=== PATIENT | male | born 1985 | race Caucasian/White ===

== ENCOUNTER 2016-12-21 00:33 | Inpatient (IN) | payer OTHER ==
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
--- NOTE | ~2016-12-21 | DS ---
Unit #: [id number] #: [id number] Patient: OSCAR FONTAINE [id number] [place] [address] [id number] MR#: [id number] NAME: OSCAR FONTAINE ROOM: [facility] Age: 31 Sex: M Admission Date: 12/21/2016 : 1985 Discharge Date: 12/23/2016 Attending Physician: Manoj Nogueira M.D. Primary Care Physician: Primary Care Physician No DISCHARGE SUMMARY REASON FOR ADMISSION The patient is a 31-year-old, , white male, admitted to the [address] [place] [address] unit related to abuse of alcohol, methamphetamine, and heroin. HOSPITAL COURSE The patient was admitted to the [address] [place] [address] and placed on routine detoxification protocol for both opioids and alcohol. He did exhibit a bit of confusion on the evening of 12/22/2016. On 12/23/2016, however, the patient was fully oriented and attributed his confusion to medications he had been given for withdrawal and anxiety. He was fully oriented, pleasant, and future oriented, stating a plan to go to a treatment facility in [place], [place] upon discharge. As per his request, discharge was ordered. FINAL DIAGNOSES Alcohol use disorder, opioid use disorder, methamphetamine use disorder, hypertension, gastroesophageal reflux disease. DISPOSITION ON DISCHARGE The patient is discharged on the following medications; metoprolol 50 mg b.i.d. for hypertension, Protonix 40 mg daily for GERD, gabapentin 800 mg q.i.d. for anxiety and pain, Elavil 100 mg at h.s. p.r.n. insomnia. DISCHARGE INSTRUCTIONS No dietary or physical restrictions were placed on the patient at the time of discharge. FOLLOWUP Followup will take place through the auspices of community mental health resources in the [place], [place] area. PROGNOSIS The patient's prognosis is considered fair. Dictated by... Manoj Nogueira M.D. CB/santiago TD: 12/23/2016 22:34 JOB #: [id number] Unit #: [id number] #: [id number] Patient: OSCAR FONTAINE DISCHARGE SUMMARY X Manoj Nogueira MD X DISCHARGE SUMMARY
--- NOTE | ~2016-12-21 | PN ---
Unit #: [id number] #: [id number] Patient: OSCAR FONTAINE [id number] [facility] [address] [place] [address] [id number] I MR#: [id number] NAME: OSCAR FONTAINE ROOM: [facility] Age: 31 Sex: M Admission Date: 12/21/2016 : 1985 Attending Physician: Manoj Nogueira M.D. Admitting Physician: Manoj Nogueira M.D. Primary Care Physician: Primary Care Physician Michelle KURTZ PROGRESS NOTES DATE 12/22/2016 DISCUSSION The patient continues to have significant substance withdrawal having required a dose of Ativan just this morning. He is sleeping soundly at this point and multiple attempts to arouse him are not successful. Dictated by... Manoj Nogueira M.D. CB/justin TD: 12/22/2016 14:58 JOB #: [id number] [facility] PROGRESS NOTES X Manoj Nogueira MD X PROGRESS NOTE
--- NOTE | ~2016-12-21 | HP ---
Unit #: [id number] #: [id number] Patient: ERICH FONTAINE [id number] [place] [address] [id number] I MR#: [id number] NAME: ERICH FONTAINE ROOM: P214 Age: 31 Sex: M Admission Date: 12/21/2016 : 1985 Attending Physician: Manoj Nogueira M.D. Admitting Physician: Manoj Nogueira M.D. Primary Care Physician: Primary Care Physician No HISTORY AND PHYSICAL HISTORY OF PRESENT ILLNESS Erich is a 31 year old admitted to [address] [place] [address] because of his continued polysubstance abuse which now includes spice and cocaine. PAST MEDICAL HISTORY 1. Long history of poly-illicit substance abuse to include cocaine and spice and IV heroin. 2. Hepatitis C. 3. High blood pressure. PAST SURGICAL HISTORY Colon resection. ALLERGIES Penicillin, Rocephin, latex. SOCIAL HISTORY Smokes 1 pack per day. Drinks a half gallon of scotch frequently and admits to frequent use of cocaine. FAMILY HISTORY Medically noncontributory. REVIEW OF SYSTEMS CONSTITUTIONAL: No fever or chills. HEENT: Denies any sore throat, ear pain or runny nose. CARDIOVASCULAR: Denies chest pain, irregular heart rhythm or palpitations. CHEST: Denies shortness of breath or cough. No hemoptysis. GASTROINTESTINAL: Denies nausea, vomiting, diarrhea or chronic constipation. ENDOCRINE: Denies history of increased thirst or urination. No recent significant weight loss or gain. GENITOURINARY: Denies dysuria, frequency, or hematuria. SKIN: Denies any rashes. HEMATOLOGIC: Denies history of increased bleeding or bruising. MUSCULOSKELETAL: Denies any hot, swollen joints. No generalized muscle pain. NEUROLOGIC: Denies problems with vision or speech. No frequent, severe headaches. No numbness, tingling or weakness in any extremities. Denies loss of bladder or bowel control. CURRENT MEDICATIONS 1. Detox protocol. Unit #: [id number] #: [id number] Patient: ERICH FONTAINE 2. Amitriptyline 100 mg q.h.s. 3. Thorazine 100 mg q. 6 hours p.r.n. 4. Protonix 40 mg daily. 5. Lopressor 50 mg b.i.d. 6. Nicotine patch 14 mg daily. PHYSICAL EXAMINATION GENERAL: Alert, well-nourished, in no apparent distress. VITAL SIGNS: Blood pressure 110/72, heart rate 80, respirations 16, temperature 98.6. WEIGHT: 215. HEIGHT: 6 feet 5 inches. SKIN: Warm and dry without rash or lesion. HEENT: Normocephalic. TMs not viewed. Oral and nasal passages clear. Conjunctivae clear. PERRLA. EOMs intact. NECK: Supple without lymphadenopathy or thyromegaly. HEART: Regular rate and rhythm without murmur. LUNGS: Clear. ABDOMEN: Soft, nontender. : Not done. EXTREMITIES: No evidence of cyanosis, clubbing or edema. Moves all without focal deficit. NEUROLOGICAL: Grossly within normal limits. Cranial Nerves: II: Visual haley are intact. III, IV AND : Extraocular movements are intact. Pupils are equal, round and reactive to light. V: Facial sensation is grossly normal. VII: Facial movements and expression are normal. VIII: Auditory acuity grossly intact. IX, X: Uvula is midline. Phonation is normal. XI: Patient shrugs shoulders and turns head normally. XII: Tongue protrudes in the midline. Sensory and Motor Function: Sensory and motor sensation is grossly normal. Motor: moves all extremities well. Coordination: Gait is normal. Deep Tendon Reflexes: Intact. IMPRESSION Psychiatric admission. RECOMMENDATIONS PSYCHIATRIC: Per psychiatrist. MEDICAL: See no contraindications to participate in facility's activities. MEDICAL PROGNOSIS Good. MEDICAL CONDITION Stable. Dictated by... Magy Gómez P.A.-C. for Cesar Pleitez/justin TD: 12/21/2016 21:22 Unit #: [id number] #: [id number] Patient: ERICH FONTAINE JOB #: [id number] HISTORY AND PHYSICAL X Magy Gómez HISTORY AND PHYSICAL
[2016-12-21 09:51] LABS: THYROID STIMULATING HORMONE 0.45 uIU/ml (0.34-5.60)
[2016-12-21 09:58] LABS: FREE THYROXIN (T4) 0.8 ng/dL (0.58-1.64)
== END 2016-12-23 14:50 | disposition home or self-care (01) | DRG 897 ==
LOC: P2S 00:33
PROVIDERS: Psychiatry & Neurology Psychiatry
PROC: HZ2ZZZZ Detoxification Services for Substance Abuse Treatment (ICD-10-PCS; principal; 2016-12-21)
DX: F11.20 Opioid dependence, uncomplicated (principal); F14.20 Cocaine dependence, uncomplicated; I10 Essential (primary) hypertension; F15.20 Other stimulant dependence, uncomplicated; F10.20 Alcohol dependence, uncomplicated; B19.20 Unspecified viral hepatitis C without hepatic coma; Z88.0 Allergy status to penicillin; Z88.1 Allergy status to other antibiotic agents; Z91.040 Latex allergy status; F17.200 Nicotine dependence, unspecified, uncomplicated; Z56.0 Unemployment, unspecified; F34.1 Dysthymic disorder
CPT/HCPCS: 84439; 84443

== ENCOUNTER 2016-12-24 04:32 | Inpatient (IN) | payer OTHER ==
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
--- NOTE | ~2016-12-24 | DS ---
Unit #: [id number] #: [id number] Patient: OSCAR FONTAINE [id number] [facility] [address] [place] [address] [id number] MR#: [id number] NAME: OSCAR FONTAINE ROOM: [facility] Age: 31 Sex: M Admission Date: 12/24/2016 : 1985 Discharge Date: 12/25/2016 Attending Physician: Manoj Nogueira M.D. Primary Care Physician: Generic Doctor Not In System DISCHARGE SUMMARY ANTICIPATED DATE OF DISCHARGE 12/25/2016. REASON FOR ADMISSION The patient is a 31-year-old white male, readmitted to the [address] [place] [address] unit after he had overdosed on heroin after leaving the hospital yesterday. HOSPITAL COURSE The patient was admitted to the [address] [place] [address] unit and placed on suicide precautions. He expressed contrition over the ensuing hospitalization admitting that he had the drugs spirited in his possessions at the time of his discharge. Arrangements had been made for the patient to go to a residential chemical dependency treatment facility in [place], [place] the following day. Discharge was ordered to take place on 12/25/2016. FINAL DIAGNOSES Opioid use disorder, alcohol use disorder, methamphetamine use disorder, cocaine use disorder. DISPOSITION ON DISCHARGE At the time of discharge, this physician will provide no prescriptions for psychotropic medication. FOLLOWUP Followup will take place through the auspices of a residential chemical dependency treatment in the [place], [place] area. PROGNOSIS The patient's prognosis is considered fair. Dictated by... Manoj Nogueira M.D. CB/santiago TD: 12/25/2016 01:46 JOB #: [id number] Unit #: [id number] #: [id number] Patient: OSCAR FONTAINE DISCHARGE SUMMARY X Manoj Nogueira MD X DISCHARGE SUMMARY
--- NOTE | ~2016-12-24 | HP ---
Unit #: [id number] #: [id number] Patient: ERICH FONTAINE [id number] [facility] [address] [place] [address] [id number] I MR#: [id number] NAME: ERICH FONTAINE ROOM: P214 Age: 31 Sex: M Admission Date: 12/24/2016 : 1985 Attending Physician: Manoj Nogueira M.D. Admitting Physician: Manoj Nogueira M.D. Primary Care Physician: Generic Doctor Not In System HISTORY AND PHYSICAL HISTORY OF PRESENT ILLNESS Erich Is a 31 year old admitted to [address] [place] [address] because of his continued drug use. He was just discharged from this facility after treatment for the same. The patient was seen and H and P dated 12/21/2016 was reviewed. This is current. No changes. Please see H and P dated 12/21/2016. Dictated by... Magy Gómez P.A.-C. for Cesar Pleitez/mariah TD: 12/25/2016 03:35 JOB #: [id number] HISTORY AND PHYSICAL X Magy Gómez HISTORY AND PHYSICAL
== END 2016-12-25 09:48 | disposition home or self-care (01) | DRG 897 ==
LOC: P1E 04:32 → P2S 04:36 → POF 14:06 → P2S 14:11
DX: F11.20 Opioid dependence, uncomplicated (principal); R45.851 Suicidal ideations; F14.20 Cocaine dependence, uncomplicated; F15.20 Other stimulant dependence, uncomplicated; F10.20 Alcohol dependence, uncomplicated; Z88.0 Allergy status to penicillin; Z88.1 Allergy status to other antibiotic agents; Z91.040 Latex allergy status
CPT/HCPCS: 86592

== ENCOUNTER 2017-02-02 09:21 | Inpatient (IN) | payer OTHER ==
--- NOTE | ~2017-02-02 | PN ---
Unit #: [id number] #: [id number] Patient: OSCAR RODRIGUEZ [id number] [facility] [address] [place] [address] [id number] I MR#: [id number] NAME: OSCAR RODRIGUEZ ROOM: P171 Age: 31 Sex: M Admission Date: 02/02/2017 : 1985 Attending Physician: Carlin Quinn M.D. Admitting Physician: Carlin Quinn M.D. Primary Care Physician: Generic Doctor Not In System [facility] PROGRESS NOTES DATE OF SERVICE: 02/05/2017 SUBJECTIVE Mr. Rodriguez is a 31-year-old white male, who was seen today and chart was reviewed, and case was discussed with the staff. He has been anxious, withdrawn, and rather seclusive to himself. Meanwhile, he has been cooperative with treatment recommendation and he has been taking medications and tolerating them fairly well. MENTAL STATUS EXAMINATION Young white male, who was casually dressed with fair personal hygiene, appears to be in no acute distress or discomfort. He was awake and alert on interaction with intact orientation. His mood was anxious with a congruent affect. He denies any suicidal or homicidal ideations, and also denies any auditory or visual hallucinations. His insight and judgment remain slightly impaired. TREATMENT PLAN 1. We will continue on his current medications and treatment protocol. We will monitor his response to medications and make further adjustments as needed. 2. We will continue to follow up. Dictated by... Cesar No/santiago TD: 02/05/2017 08:22 JOB #: [id number] [facility] PROGRESS NOTES Page 1 of 1 X Carlin Quinn MD PROGRESS NOTE
--- NOTE | ~2017-02-02 | DS ---
Unit #: [id number] #: [id number] Patient: [facility]IGUEZ [id number] [facility] [address] [place] [address] [id number] I MR#: [id number] NAME: OSCAR RODRIGUEZ ROOM: 71 Age: 31 Sex: M Admission Date: 02/02/2017 : 1985 Discharge Date: Attending Physician: Carlin Quinn M.D. Primary Care Physician: Generic Doctor Not In System DISCHARGE SUMMARY IDENTIFYING DATA Mr. Rodriguez is a 31-year-old white male, who is a resident of [place], [place], and was transferred to us from [facility] in [place], [place]. DISCHARGE DIAGNOSES Psychiatric: Bipolar disorder, most recent episode depressed, recurrent, moderate, without psychotic features; alcohol dependence, moderate and acute withdrawals; cocaine dependence, moderate. Medical: Hepatitis C. Stressors: Moderate psychosocial stressors. HISTORY OF PRESENT ILLNESS Please see initial psychiatric evaluation for details. PAST PSYCHIATRIC HISTORY Please see initial psychiatric evaluation for details. PAST MEDICAL HISTORY Please see initial psychiatric evaluation for details. HOSPITAL COURSE The patient was admitted to the adult chemical dependency and psychiatric unit at [facility] and was oriented to the hospital environment. Routine p.r.n. medications were initiated, and he was started back on his home medications. Upon presentation, he was seen to be taking quite a bit of psychotropic medications which were maintained as he stated that he has not been doing good without having medications; however, he was then noticed to be just sleeping and eating and not really participating much in treatment related activities and then was wanting to be on more medications which were uncomfortable to even justify those and as such, at least regular medications were maintained and he was closely monitored. He was taking the medications regularly and was tolerating them fairly well and was able to show a decent and therapeutic response with improvement in depression and anxiety and was denying any suicidal or homicidal ideations, and was not seen to be a danger to self or anyone else and as such, it was decided that he will be discharged home and will continue treatment on an outpatient basis. DISCHARGE MEDICATIONS Seroquel 50 mg t.i.d. for bipolar, Protonix 40 mg b.i.d. for acid reflux, Trileptal 300 mg b.i.d. for bipolar, Seroquel 300 mg at bedtime for bipolar, Lopressor 50 mg b.i.d. for hypertension, Neurontin 800 mg t.i.d. for neuropathy, Elavil 50 mg at bedtime for sleep, Cozaar 50 mg a day for Unit #: [id number] #: [id number] Patient: OSCAR RODRIGUEZ hypertension, Oretic 12.5 mg a day for hypertension, Thorazine 50 mg every 6 hours as needed for anxiety. DISCHARGE CONDITION Stable. PROGNOSIS Fair. Dictated by... Cesar No/santiago TD: 02/08/2017 06:51 JOB #: [id number] DISCHARGE SUMMARY Page 1 of 1 X Carlin Quinn MD X DISCHARGE SUMMARY
--- NOTE | ~2017-02-02 | PN ---
Unit #: [id number] #: [id number] Patient: OSCAR RODRIGUEZ [id number] [facility] [address] [place] [address] [id number] MR#: [id number] NAME: OSCAR RODRIGUEZ ROOM: [facility] Age: 31 Sex: M Admission Date: 02/02/2017 : 1985 Attending Physician: Carlin Quinn M.D. Admitting Physician: Carlin Quinn M.D. Primary Care Physician: Generic Doctor Not In System [facility] PROGRESS NOTES DATE 02/03/2017 DISCUSSION Mr. Rodriguez is a 31-year-old, white male with substance abuse and mood disorder who was seen today and chart was reviewed and case was discussed with the staff. He has been anxious, withdrawn and rather seclusive to himself. Meanwhile, he has been cooperative with the treatment recommendations. He has been taking the medication and tolerating them fairly well with no reported side effects. MENTAL STATUS EXAM Young white male who was casually dressed with fair personal hygiene, appears to be in no acute distress or discomfort. He was awake and alert on interaction with intact orientation. His mood was anxious with congruent affect. His speech was slow and goal directed. He denies any suicidal or homicidal ideation. His insight and judgement remains slightly impaired. TREATMENT PLAN We will continue him on his current treatment protocol. We will monitor his response and make further adjustments as needed. Dictated by... Cesar No/mariah TD: 02/04/2017 04:19 JOB #: [id number] Unit #: [id number] #: [id number] Patient: OSCAR RODRIGUEZ PROGRESS NOTES Page 1 of 1 X Carlin Quinn MD PROGRESS NOTE
--- NOTE | ~2017-02-02 | PN ---
Unit #: [id number] #: [id number] Patient: OSCAR RODRIGUEZ [id number] [facility] [address] [place] [address] [id number] MR#: [id number] NAME: OSCAR RODRIGUEZ ROOM: 71 Age: 31 Sex: M Admission Date: 02/02/2017 : 1985 Attending Physician: Carlin Quinn M.D. Admitting Physician: Cesar No PROGRESS NOTES DATE OF SERVICE: 02/04/2017 SUBJECTIVE Mr. Rodriguez is a 31-year-old white male with substance abuse and mood disorder, who was seen today and chart was reviewed, and case was discussed with the staff. He has been anxious, withdrawn, and rather seclusive to himself. Meanwhile, he has been cooperative with treatment recommendations and has been taking medications, though appears to be unkempt, disheveled, in some distress and discomfort and does not appear to be doing much better, as he has not been able to function and do activities of daily living or have reasonable conversation. MENTAL STATUS EXAMINATION Young white male, who was casually dressed with marginal personal hygiene, appears to be in some distress and discomfort. He was awake and alert with impaired attention and concentration. His mood was anxious with a congruent affect. His speech was slow and restricted in content. His thought processes were disorganized with some looseness of associations. His insight and judgment remain significantly impaired. TREATMENT PLAN 1. We will continue on his current medications and treatment protocol. We will monitor his response to medications and make further adjustments as needed. 2. We will continue to follow up. Dictated by... Cesar No/santiago TD: 02/04/2017 07:59 JOB #: [id number] Unit #: [id number] #: [id number] Patient: OSCAR RODRIGUEZ PROGRESS NOTES Page 1 of 1 X Carlin Quinn MD PROGRESS NOTE
--- NOTE | ~2017-02-02 | DS ---
Unit #: [id number] #: [id number] Patient: OSCAR RODRIGUEZ [id number] [facility] [address] [place] [address] [id number] MR#: [id number] NAME: OSCAR RODRIGUEZ ROOM: P171 Age: 31 Sex: M Admission Date: 02/02/2017 : 1985 Discharge Date: 02/09/2017 Attending Physician: Carlin Quinn M.D. Primary Care Physician: Generic Doctor Not In System DISCHARGE SUMMARY ADDENDUM Mr. Rodriguez was scheduled to be discharged on 02/08/2017. On that morning, he got down in the morning and told that he was not suicidal, but once he was told that he was being discharged, he although suddenly stated that he is suicidal now and was noticed to be not doing much about treatment, just sleeping and eating and wanting more and more medication, and therefore it was decided that detox medications would be stopped and he would be locked out of his room and put on a suicidal watch as he was mentioning that he was suicidal and the very next morning when I saw him, he stated that he is just fine and he never said that he was suicidal and was exhibiting very manipulative behavior and was wanting to go home and was denying being a danger to self or anyone else and as such, it was decided that he will be discharged home and will continue treatment on an outpatient basis. DISCHARGE CONDITION Stable. PROGNOSIS Fair. Dictated by... Cesar No/santiago TD: 02/09/2017 12:06 JOB #: [id number] DISCHARGE SUMMARY Page 1 of 1 X Carlin Quinn MD X DISCHARGE SUMMARY
--- NOTE | ~2017-02-02 | PN ---
Unit #: [id number] #: [id number] Patient: OSCAR RODRIGUEZ [id number] [facility] [address] [place] [address] [id number] I MR#: [id number] NAME: OSCAR RODRIGUEZ ROOM: 71 Age: 31 Sex: M Admission Date: 02/02/2017 : 1985 Attending Physician: Carlin Quinn M.D. Admitting Physician: Carlin Quinn M.D. Primary Care Physician: Generic Doctor Not In System [facility] PROGRESS NOTES DATE OF SERVICE: 02/07/2017 SUBJECTIVE Mr. Rodriguez is a 31-year-old white male who was seen today and chart was reviewed, and case was discussed with the staff. He has been anxious, withdrawn, and rather seclusive to himself. Meanwhile, he has been cooperative with treatment recommendations and has been taking the medications and tolerating them fairly well with no reported side effects. MENTAL STATUS EXAMINATION Young white male who was casually dressed with a fair personal hygiene and appears to be in no acute distress or discomfort. He was awake and alert on interaction with intact orientation. His mood was anxious with a congruent affect. He denies any suicidal or homicidal ideations. His insight and judgment remain slightly impaired. TREATMENT PLAN 1. We will continue him on his current medications and treatment protocol. We will monitor his response to the medication and make further adjustments as needed. 2. We will continue to follow up. Dictated by... Cesar No/santiago TD: 02/07/2017 07:58 JOB #: [id number] [facility] PROGRESS NOTES Page 1 of 1 X Carlin Quinn MD PROGRESS NOTE
--- NOTE | ~2017-02-02 | HP ---
Unit #: [id number] #: [id number] Patient: OSCAR FONTAINE [id number] [place] [address] [id number] I MR#: [id number] NAME: OSCAR FONTAINE ROOM: 71 Age: 31 Sex: M Admission Date: 02/02/2017 : 1985 Attending Physician: Carlin Quinn M.D. Admitting Physician: Carlin Quinn M.D. Primary Care Physician: Generic Doctor Not In System HISTORY AND PHYSICAL HISTORY OF PRESENT ILLNESS The patient is a 31-year-old male admitted to [facility] on 02/02/2017, for alcohol and cocaine abuse. PAST MEDICAL HISTORY 1. Hepatitis B 2. Hypertension 3. GERD PAST SURGICAL HISTORY Colon resection SOCIAL HISTORY He is unemployed and homeless. He drinks 2 fifths of alcohol per day and uses 2 grams of cocaine daily. FAMILY MEDICAL HISTORY Noncontributory. ALLERGIES Penicillin, Rocephin and latex CURRENT MEDICATIONS 1. Seroquel 2. Protonix 3. Trileptal 4. Metoprolol 5. Gabapentin 6. Vistaril 7. Chlorpromazine 8. Losartan with HCTZ 9. Elavil REVIEW OF SYSTEMS CONSTITUTIONAL: No fever or chills. HEENT: Denies any sore throat, ear pain or runny nose. CARDIOVASCULAR: Denies chest pain, irregular heart rhythm or palpitations. CHEST: Denies shortness of breath or cough. No hemoptysis. GASTROINTESTINAL: Denies nausea, vomiting, diarrhea or chronic constipation. ENDOCRINE: Denies history of increased thirst or urination. No recent significant weight loss or gain. GENITOURINARY: Denies dysuria, frequency, or hematuria. Unit #: [id number] #: [id number] Patient: OSCAR FONTAINE SKIN: Denies any rashes. HEMATOLOGIC: Denies history of increased bleeding or bruising. MUSCULOSKELETAL: Denies any hot, swollen joints. No generalized muscle pain. NEUROLOGIC: Denies problems with vision or speech. No frequent, severe headaches. No numbness, tingling or weakness in any extremities. Denies loss of bladder or bowel control. PHYSICAL EXAMINATION GENERAL: He is awake, alert, and oriented in no acute distress. VITAL SIGNS: Temperature 97.1, heart rate 102, respirations 20, blood pressure 127/75 HEIGHT: 6 feet 5 inches WEIGHT: 220 pounds SKIN: Warm and dry without rash or lesion. HEENT: Normocephalic. TMs not viewed. Oral and nasal passages clear. Conjunctivae clear. PERRLA. EOMs intact. NECK: Supple without lymphadenopathy or thyromegaly. HEART: Regular rate and rhythm without murmur. LUNGS: Clear. ABDOMEN: Soft, nontender. : Not done. EXTREMITIES: No evidence of cyanosis, clubbing or edema. Moves all without focal deficit. NEUROLOGICAL: Grossly within normal limits. Cranial Nerves: II: Visual haley are intact. III, IV AND : Extraocular movements are intact. Pupils are equal, round and reactive to light. V: Facial sensation is grossly normal. VII: Facial movements and expression are normal. VIII: Auditory acuity grossly intact. IX, X: Uvula is midline. Phonation is normal. XI: Patient shrugs shoulders and turns head normally. XII: Tongue protrudes in the midline. Sensory and Motor Function: Sensory and motor sensation is grossly normal. Motor: moves all extremities well. IMPRESSION 1. Psychiatric admission. 2. Polysubstance use. 3. Hepatitis C 4. Hypertension. 5. Gastroesophageal reflux disease. RECOMMENDATIONS 1. Psychiatric, per psychiatrist. 2. Medical, no contraindications to participating in facility activities. MEDICAL PROGNOSIS Fair MEDICAL CONDITION Stable Dictated by... Unit #: [id number] #: [id number] Patient: ZHENOSCAR Emiliana Tam A.P.R.N. EF/to TD: 02/03/2017 15:52 JOB #: [id number] HISTORY AND PHYSICAL Page 1 of 1 X EMILIANA TAM APRN X HISTORY AND PHYSICAL
--- NOTE | ~2017-02-02 | PN ---
Unit #: [id number] #: [id number] Patient: OSCAR RODRIGUEZ [id number] [facility] [address] [place] [address] [id number] I MR#: [id number] NAME: OSCAR RODRIGUEZ ROOM: 71 Age: 31 Sex: M Admission Date: 02/02/2017 : 1985 Attending Physician: Carlin Quinn M.D. Admitting Physician: Carlin Quinn M.D. Primary Care Physician: Generic Doctor Not In System [facility] PROGRESS NOTES DATE OF SERVICE: 02/06/2017 SUBJECTIVE Mr. Rodriguez is a 31-year-old white male, who was seen today and chart was reviewed, and case was discussed with the staff. He has been anxious, withdrawn, though has not shown any agitation, irritability, or behavioral problems, and has been cooperative with treatment recommendation and has been taking medications and tolerating them fairly well with no reported side effects. MENTAL STATUS EXAMINATION Young white male, who was casually dressed with fair personal hygiene, appears to be in no acute distress or discomfort. He was awake and alert on interaction with intact orientation. His mood was anxious with a congruent affect. His speech was slow and goal directed. He denies any suicidal or homicidal ideations and also denies any auditory or visual hallucinations. His insight and judgment remain slightly impaired. TREATMENT PLAN 1. We will continue on his current medications and treatment protocol. We will monitor his response to medications and make further adjustments as needed. 2. We will continue to follow up. Dictated by... Cesar No/santiago TD: 02/06/2017 07:41 JOB #: [id number] Unit #: [id number] #: [id number] Patient: OSCAR RODRIGUEZ PROGRESS NOTES Page 1 of 1 X Carlin Quinn MD PROGRESS NOTE
--- NOTE | ~2017-02-02 | PA ---
Unit #: [id number] #: [id number] Patient: OSCAR RODRIGUEZ [id number] [facility] [address] [place] [address] [id number] I MR#: [id number] NAME: OSCAR RODRIGUEZ ROOM: P171 Age: 31 Sex: M Admission Date: 02/02/2017 : 1985 Date of Assessment: 02/02/2017 Attending Physician: Carlin Quinn M.D. Admitting Physician: Carlin Quinn M.D. Primary Care Physician: Generic Doctor Not In System PSYCHIATRIC ASSESSMENT DATE OF SERVICE 02/02/2017. IDENTIFYING DATA Mr. Rodriguez is a 31-year-old white male who is a resident of [place], [place] and was transferred to from [place], [place]. CHIEF COMPLAINT "I'm using alcohol and cocaine daily." HISTORY OF PRESENT ILLNESS Mr. Rodriguez is a 31-year-old white male who took himself to [facility] stating that he has been using alcohol and cocaine daily and has been drinking two-fifth of alcohol and has been using 2 g of more of cocaine and reports feeling that he would be better off and currently wanted to by overdosing on cocaine, and was seen to be agitated, irritable, anxious, restless, withdrawn and reports 2 months ago, he was loading a gun to shoot himself and his brother came in and stopped him. The patient reports currently having suicidal ideation, and reports feeling like he would be better off and that he has a plan to overdose on cocaine and was seen to be danger to self and others and as such, recommendation for inpatient level of care for safety and stabilization was made and the patient was transferred to us. SUBSTANCE ABUSE HISTORY The patient reports history of alcohol and cocaine abuse and dependence, and reports that he has been drinking two-fifth of alcohol on daily basis and has been using 2 g of cocaine on daily basis and as such, has been decompensating. PAST PSYCHIATRIC HISTORY The patient has had history of inpatient psychiatric hospitalization at [facility] and review of the medical records indicate that he has been diagnosed and treated for bipolar disorder. He is currently on combination of psychotropic medication as he is on Trileptal, Seroquel, Thorazine, and Vistaril. PAST MEDICAL HISTORY The patient's medical history is significant for hepatitis C. ALLERGIES Rocephin. Unit #: [id number] #: [id number] Patient: OSCAR RODRIGUEZ PERSONAL AND SOCIAL HISTORY A 31-year-old white male who reports that he is single, unemployed, and essentially homeless and has poor social support system. MENTAL STATUS EXAMINATION Young white male who was casually dressed with fair personal hygiene, appears to be in no acute distress or discomfort. He was awake and alert on interaction with intact orientation to time, place, and person. His mood was anxious and depressed with a congruent affect. His speech was slow and restricted in content. His thought processes were disorganized with some looseness of associations and flight of ideas, and suicidal ideations. His insight and judgment remain significantly impaired. DIAGNOSTIC IMPRESSION Psychiatric: Bipolar disorder, most recent episode depressed, recurrent, moderate, without psychotic features; alcohol dependence, moderate and acute withdrawals; cocaine dependence, moderate. Medical: Hepatitis C. Stressors: Moderate psychosocial stressors. TREATMENT PLAN 1. The patient has presented with history of substance abuse and mood disorder, and has been decompensating and will need inpatient hospitalization for safety and stabilization and detoxification. We will start him on detox protocol. We will closely monitor for any worsening withdrawal symptoms. 2. Supportive therapy was provided to the patient. 3. Safe, structured, and nourishing environment will be reported. ESTIMATED LENGTH OF STAY 5 to 7 days. ABILITY TO HELP SELF Limited. WILLINGNESS TO HELP SELF The patient appears to be willing to help self. STRENGTHS 1. Communicative. 2. Cooperative. PROBLEMS 1. Chronic dysphoric symptoms. 2. Poor social support system. DISCHARGE CRITERIA This will be contingent upon the patient's ability to go through detox without having any significant withdrawal symptoms as well as his ability to stay safe to himself, particularly after discharge from the hospital. Dictated by... Cesar No/santiago Unit #: [id number] #: [id number] Patient: OSCAR RODRIGUEZ TD: 02/03/2017 13:54 JOB #: [id number] PSYCHIATRIC ASSESSMENT Page 1 of 1 X Carlin Quinn MD X PSYCHIATRIC ASSESSMENT
[2017-02-05 18:52] LABS: BASOPHIL# 0.1 X10e3 (0-0.3); BASOPHIL% 0.6 % (0-2.5); EOSINOPHIL# 0.2 X10e3 (0-0.7); EOSINOPHIL% 3.1 % (0.0-7.0); HEMATOCRIT 43.4 % (38.0-50.0); HEMOGLOBIN 14.4 gm/dL (13.0-16.0); LYMPHOCYTE# 3.4 X10e3 (1.0-3.5); LYMPHOCYTE% 42.1 % (17.0-45.0); MEAN CELL VOLUME 94.8 FL (83-96); MEAN CORPUSCULAR HEMOGLOBIN 31.4 PG (28-34); MEAN CORPUSCULAR HGB CONC 33.1 g/dL (30-36); MEAN PLATELET VOLUME 7.5 FL (6.5-11.5); MONOCYTE# 0.8 X10e3 (0-1.0); MONOCYTE% 9.8 % (3.0-12.0); NEUTROPHIL# 3.6 X10e3 (1.5-7.1); NEUTROPHIL% 44.4 % (40-75); PLATELET COUNT 297 X10e3 (140-420); RED BLOOD COUNT 4.57 X10e (3.90-5.60); RED CELL DISTRIBUTION WIDTH 12.8 % (11.0-15.5); WHITE BLOOD COUNT 8.1 X10e3 (4.0-10.5)
[2017-02-05 19:07] LABS: DIFF IND NO
== END 2017-02-09 10:59 | disposition home or self-care (01) | DRG 885 ==
LOC: P1E 09:21
PROVIDERS: Physician Assistant Medical
PROC: HZ2ZZZZ Detoxification Services for Substance Abuse Treatment (ICD-10-PCS; principal; 2017-02-02)
DX: F31.32 Bipolar disorder, current episode depressed, moderate (principal); F14.20 Cocaine dependence, uncomplicated; R45.851 Suicidal ideations; F10.239 Alcohol dependence with withdrawal, unspecified; Z88.1 Allergy status to other antibiotic agents
CPT/HCPCS: 85025

== ENCOUNTER 2017-02-05 20:21 | Emergency (ER) | payer OTHER ==
--- NOTE | ~2017-02-05 | CT2 ---
[facility] A Service of [facility] RADIOLOGY TEXT RESULTS PATIENT: OSCAR FONTAINE LOCATION: [facility] : [birth year] UNIT #: [id number] AGE: [address]: Yoshi Keith MD SEX: M ORDER DR: [id number] [facility] [address] [place], [place] [address] [id number] MR#: [id number] Acc #: [id number] NAME: OSCAR FONTAINE : 1985 SEX: M STUDY DATE/TIME: 02/05/2017 22:04 UNIT: YELENA ROOM: STUDY DESCRIPTION: CT Abd and Pelv W Cont Attending Physician: Yoshi Keith M.D. Ordering Physician: Yoshi Keith M.D. Primary Care Physician: Generic Doctor Not In System MEDICAL IMAGING REPORT This report is preliminary unless electronic signature is present EXAM CT abdomen and pelvis. HISTORY Abdominal pain for 1 week. Right lower quadrant. Hypertension. TECHNIQUE This CT exam was performed with one or more of the following radiation dose reduction techniques: automatic exposure control, adjustment of mA and/or kV according to patient size, and iterative reconstruction. CT abdomen and pelvis performed with intravenous administration 100 mL Isovue-370. Enteric contrast not administered. COMPARISON STUDIES No comparisons. FINDINGS Lung bases clear. Inferior heart and pericardium unremarkable. Liver, gallbladder, spleen, pancreas, adrenal glands, kidneys normal in appearance. Ureters unremarkable. No secondary signs of recent stone passage. Urinary bladder unremarkable. CT Pelvis: No inguinal adenopathy. No pelvic or retroperitoneal adenopathy. Distal esophagus unremarkable. Moderate residual food debris in the stomach. Correlate with ingestion history. The small bowel shows no acute abnormality. The appendix is normal. Colon shows moderate stool burden. No dilatation or inflammatory change. No indication of mass lesion. Vascular structures normal. Bony structures show no acute abnormality. IMPRESSION [facility] A Service of [facility] RADIOLOGY TEXT RESULTS PATIENT: OSCAR FONTAINE LOCATION: [facility] : [birth year] UNIT #: [id number] AGE: [address]: Yoshi Keith MD SEX: M ORDER DR: 1. There is no clearly acute abnormality seen within the abdomen or pelvis. The gallbladder, pancreas, kidneys and appendix are normal in appearance. 2. Moderate residual food debris in the stomach likely reflecting patient's ingestion history. Correlate clinically. 3. Moderate stool burden in otherwise unremarkable colon. Probably physiologic in nature. Correlate with any clinical indications of constipation. 4. Remainder study unremarkable. See details above. Dictated by... Kirt Colmenares M.D. THIS IS AN ELECTRONICALLY VERIFIED REPORT Kirt Colmenares M.D. at 02/06/2017 10:44 PM Ines TD: 02/05/2017 23:35 JOB #: [id number] MEDICAL IMAGING REPORT Page 1 of 1 COPY
[2017-02-05 20:36] LABS: BASOPHIL% 0.6 % (0-2.5); EOSINOPHIL# 0.2 X10e3 (0-0.7); EOSINOPHIL% 2.7 % (0.0-7.0); HEMATOCRIT 43.5 % (38.0-50.0); HEMOGLOBIN 14.8 gm/dL (13.0-16.0); LYMPHOCYTE# 3.2 X10e3 (1.0-3.5); LYMPHOCYTE% 41.7 % (17.0-45.0); MEAN CELL VOLUME 92.9 FL (83-96); MEAN CORPUSCULAR HEMOGLOBIN 31.6 PG (28-34); MEAN PLATELET VOLUME 7.2 FL (6.5-11.5); MONOCYTE# 0.7 X10e3 (0-1.0); MONOCYTE% 9.1 % (3.0-12.0); NEUTROPHIL# 3.5 X10e3 (1.5-7.1); NEUTROPHIL% 45.9 % (40-75); PLATELET COUNT 301 X10e3 (140-420); RED BLOOD COUNT 4.68 X10e (3.90-5.60); WHITE BLOOD COUNT 7.6 X10e3 (4.0-10.5)
[2017-02-05 20:39] LABS: DIFF IND NO
[2017-02-05 21:06] LABS: ALBUMIN SERUM 4.1 g/dL (3.5-5.0); ALKALINE PHOSPHATASE 77 U/L (32-92); ALT (SGPT) 227 U/L (10-40); AMYLASE 33 U/L (0-46); AST (SGOT) 92 U/L (10-42); BILIRUBIN,TOTAL 0.4 mg/dL (0.2-2.0); BLOOD UREA NITROGEN 17 mg/dL (9-23); CALCIUM SERUM 9.4 mg/dL (8.4-10.2); CARBON DIOXIDE 27 mmol/L (22-31); CHLORIDE 100 mmol/L (100-111); GLOM FILT RATE Estimated 101.3 mL/min (>60); GLUCOSE FASTING 108 mg/dL (70-110); LIPASE 24 U/L (22-51); POTASSIUM 3.8 mmol/L (3.5-5.1); SODIUM 135 mmol/L (135-145)
[2017-02-05 21:07] LABS: BILIRUBIN, DIRECT <0.1 mg/dL (0.0-0.2); BILIRUBIN,INDIRECT 0.3 mg/dL (0.0-0.9)
== END 2017-02-06 01:34 ==
LOC: CED 20:21
PROVIDERS: Emergency Medicine
DX: R10.31 Right lower quadrant pain (principal); I10 Essential (primary) hypertension; F32.9 Major depressive disorder, single episode, unspecified; F17.200 Nicotine dependence, unspecified, uncomplicated; Z88.8 Allergy status to other drugs, medicaments and biological substances
CPT/HCPCS: 36415; 74177; 80048; 80076; 82150; 83690; 85025; 96361; 96374; 96375; 96376; 99284; J1170; J2405; Q9967

== ENCOUNTER 2017-02-11 10:45 | Inpatient (IN) | payer OTHER ==
--- NOTE | ~2017-02-11 | DS ---
Unit #: [id number] #: [id number] Patient: OSCAR FONTAINE [id number] [facility] [address] [place] [address] [id number] I MR#: [id number] NAME: OSCAR FONTAINE ROOM: [facility] Age: 31 Sex: M Admission Date: 02/11/2017 : 1985 Discharge Date: 02/14/2017 Attending Physician: Manoj Nogueira M.D. Primary Care Physician: Generic Doctor Not In System DISCHARGE SUMMARY REASON FOR ADMISSION The patient is a 31-year-old white male, admitted in transfer from [facility] following voicing suicidal ideation. HOSPITAL COURSE The patient was admitted to the [address] [place] [address] and placed on suicide precautions. He was placed on room lockout given his threats of suicide at the time of admission; however, by 02/11, the patient was responding to hospitalization and denied suicidal ideation, and room lockout precautions were discontinued. He exhibited little in the way of signs or symptoms of withdraw and reported reduction in suicidal thinking and by 02/14 discharge was ordered. DISCHARGE DIAGNOSES [place] I Cocaine use disorder. Opioid use disorder. Antisocial personality disorder. [place] II [place] III Gastroesophageal reflux disease. Hypertension. [place] IV [place] V DISPOSITION ON DISCHARGE The patient is discharged on the following medications: 1. Seroquel 50 mg three times daily for anxiety 2. Protonix 40 mg twice daily for gastroesophageal reflux disease 3. Trileptal 300 mg twice daily for mood stabilization 4. Seroquel 300 mg at bedtime for mood stabilization 5. Lopressor 50 mg twice daily for hypertension 6. Elavil 50 mg at bedtime for insomnia 7. Cozaar 50 mg once daily for hypertension 8. Oretic 12.5 mg once daily for hypertension 9. Neurontin 800 mg three times daily for chronic pain This physician will provide no prescriptions for the patient as he just left the hospital on 02/09/2017. The patient will follow through the auspices of community mental health resources. PROGNOSIS Unit #: [id number] #: [id number] Patient: OSCAR FONTAINE His prognosis is considered fair. Dictated by... Manoj Nogueira M.D. CB/cleo TD: 02/13/2017 13:17 JOB #: [id number] DISCHARGE SUMMARY Page 1 of 1 X Manoj Nogueira MD DISCHARGE SUMMARY
--- NOTE | ~2017-02-11 | PN ---
Unit #: [id number] #: [id number] Patient: OSCAR FONTAINE [id number] [facility] [address] [place] [address] [id number] I MR#: [id number] NAME: OSCAR FONTAINE ROOM: P210 Age: 31 Sex: M Admission Date: 02/11/2017 : 1985 Attending Physician: Manoj Nogueira M.D. Admitting Physician: Manoj Nogueira M.D. Primary Care Physician: Generic Doctor Not In System [facility] PROGRESS NOTES DATE 02/12/2017 DISCUSSION The patient states that he is working towards gaining admission to a 12 month recovery program. He is active within the therapeutic milieu. I will discontinue eye view precautions and will restart the patient's Neurontin. Dictated by... Manoj Nogueira M.D. CB/justin TD: 02/12/2017 15:10 JOB #: [id number] [facility] PROGRESS NOTES Page 1 of 1 X Manoj Nogueira MD X PROGRESS NOTE
--- NOTE | ~2017-02-11 | PA ---
Unit #: [id number] #: [id number] Patient: OSCAR FONTAINE [id number] [facility] [address] [place] [address] [id number] I MR#: [id number] NAME: OSCAR FONTAINE ROOM: P210 Age: 31 Sex: M Admission Date: 02/11/2017 : 1985 Date of Assessment: 02/11/2017 Attending Physician: Manoj Nogueira M.D. Admitting Physician: Manoj Nogueira M.D. Primary Care Physician: Generic Doctor Not In System PSYCHIATRIC ASSESSMENT IDENTIFYING INFORMATION The patient is a 31-year-old white male admitted in transfer from [facility] where he had presented voicing suicidal ideation. INFORMANT(S) Information is mainly obtained from the chart as the patient is sleeping soundly during attempted interview. CHIEF COMPLAINT None given. HISTORY OF PRESENT ILLNESS The patient is a 31-year-old white male just discharged from this facility yesterday on 02/09/2017. According to report the patient overdosed on cocaine while at the bus station in [place] then presented to [facility] reporting positive suicidal ideation with plan to overdose on cocaine or heroin. When seen today the patient is abed. During his last hospitalization Dr. Quinn notes that the patient's participation within the therapeutic milieu was quite poor and that the patient did exhibit what appeared to be manipulative suicidal ideation in hopes of continuing his stay in the hospital. For more complete history of present illness please refer to previous dictated notes. PAST PSYCHIATRIC HISTORY Reviewed no changes. PAST MEDICAL HISTORY Reviewed no changes. MEDICATIONS 1. Seroquel 2. Protonix 3. Trileptal 4. Lopressor 5. Neurontin 6. Elavil 7. Cozaar 8. Oretic FAMILY HISTORY Reviewed no changes SOCIAL HISTORY Unit #: [id number] #: [id number] Patient: OSCAR FONTAINE Reviewed no changes MENTAL STATUS EXAMINATION At this time reveals the patient to be soundly sleeping white male appearing stated age. He is in no apparent physical distress at the time of the examination. Further testing is not possible secondary to the patient not arousing despite multiple attempts by this physician to arouse him. ASSETS AND LIABILITIES ASSETS: To be assessed. LIABILITIES: Homelessness, lack of resources, possible malingering. DIAGNOSTIC IMPRESSION 1. Cocaine use disorder 2. Opioid use disorder 3. Antisocial personality disorder 4. GERD 5. Hypertension PSYCHIATRIC PLAN/TREATMENT GOALS The patient remains hospitalized for safety and stabilization. A routine detoxification protocol for opioids has been initiated. I will discontinue previously prescribed Neurontin and given the patient's brief period outside the hospital will also discontinue his CIWA protocol. IV precautions will be ordered given the patient's treats at the time of admission in hopes of encouraging the patient's participation within the therapeutic milieu. ESTIMATED LENGTH OF STAY IN THE HOSPITAL Three to four days. Dictated by... Manoj Nogueira M.D. JORGE/mariah TD: 02/11/2017 23:49 JOB #: [id number] PSYCHIATRIC ASSESSMENT Page 1 of 1 X Manoj Nogueira MD X PSYCHIATRIC ASSESSMENT
--- NOTE | ~2017-02-11 | HP ---
Unit #: [id number] #: [id number] Patient: ERICH FONTAINE [id number] [facility] [address] [place] [address] [id number] I MR#: [id number] NAME: ERICH FONTAINE ROOM: P210 Age: 31 Sex: M Admission Date: 02/11/2017 : 1985 Attending Physician: Manoj Nogueira M.D. Admitting Physician: Manoj Nogueira M.D. Primary Care Physician: Generic Doctor Not In System HISTORY AND PHYSICAL HISTORY OF PRESENT ILLNESS Erich is a 31 year old admitted to [address] [place] [address] because of his continued drug use. He was released from this facility on 02/09 and before he got out of [place] he was snorting cocaine [place] bus station. He is readmitted back because of his continued drug use. The patient was seen and history and physical dated 12/21/2016 was reviewed. This is current. Please see history and physical dated 12/21/2016 for complete history and physical exam. He also has a physical exam on 02/03/2017. During his admission of 02/03/2017 he complained of right lower quadrant pain. On examination he had minimal guarding with positive/negative rebound. He was sent out to [facility] Emergency Room and CAT scan showed no acute abnormality within the abdomen or pelvis. Dictated by... Magy Gómez P.A.-C. for Cesar Pleitez/mariah TD: 02/12/2017 02:36 JOB #: [id number] HISTORY AND PHYSICAL Page 1 of 1 X Magy Gómez HISTORY AND PHYSICAL
[2017-02-13 09:35] LABS: URINE APPEARANCE CLEAR; URINE BILIRUBIN NEG (NEG); URINE BLOOD NEG (NEG); URINE COLOR YELLOW; URINE GLUCOSE NEG (NEG); URINE KETONE NEG (NEG); URINE LEUKOCYTE ESTERASE NEG (NEG); URINE NITRATE NEG (NEG); URINE PROTEIN NEG (NEG); URINE SPECIFIC GRAVITY 1.005 (1.003-1.035); URINE UROBILINOGEN 0.2 MG/DL (NEG)
[2017-02-13 09:54] LABS: AMPHETAMINE POS (NEG); BARBITURATES NEG (NEG); BENZODIAZEPINES NEG (NEG); COCAINE POS (NEG); MARIJUANA NEG (NEG); OPIATES NEG (NEG); TRICYCLIC ANTIDEPRESSANTS POS (NEG); U METHADONE NEG (NEG)
== END 2017-02-13 17:25 | disposition home or self-care (01) | DRG 897 ==
LOC: P2S 10:45
PROVIDERS: Specialist
PROC: HZ2ZZZZ Detoxification Services for Substance Abuse Treatment (ICD-10-PCS; principal; 2017-02-11)
DX: F14.20 Cocaine dependence, uncomplicated (principal); F11.20 Opioid dependence, uncomplicated; R45.851 Suicidal ideations; F60.2 Antisocial personality disorder; K21.9 Gastro-esophageal reflux disease without esophagitis; I10 Essential (primary) hypertension; F41.9 Anxiety disorder, unspecified; G89.29 Other chronic pain
CPT/HCPCS: 80307; 81003; 86592

== ENCOUNTER 2017-02-15 13:30 | Inpatient (IN) | payer OTHER ==
--- NOTE | ~2017-02-15 | CO ---
Unit #: [id number] #: [id number] Patient: ERICH FONTAINE [id number] [place] [address] [id number] MR#: [id number] NAME: ERICH FONTAINE ROOM: [facility] Age: 31 Sex: M Admission Date: 02/15/2017 : 1985 Attending Physician: Erich Bess M.D. Consultation Date: 02/16/2017 CONSULTATION REPORT ORDERING PROVIDER Dr. Bess. REASON FOR CONSULT Rash on the patient's trunk and arm. SUBJECTIVE The patient reports that he noticed a few days ago that he had a rash covering his entire body. He reports that it is on his arms, chest, back, and the legs bilaterally. He reports that the rash is very itchy, but not painful. He reports that he has been sleeping outside, and there is a good likelihood that he OBJECTIVE The patient has a papular rash with secondary crusting on his bilateral arms, trunk, and legs. None of the lesions appeared to be draining and appeared to be consistent with insect bite. ASSESSMENT Rash, possibly caused by scabies. PLAN To do permethrin treatment and Benadryl for the itching. Dictated by... Emiliana Tam A.P.R.N. for Cesar Pleitez/santiago TD: 02/17/2017 01:42 JOB #: [id number] Unit #: [id number] #: [id number] Patient: ERICH FONTAINE CONSULTATION REPORT Page 1 of 1 X EMILIANA TAM APRN X CONSULTATION REPORT
--- NOTE | ~2017-02-15 | PA ---
Unit #: [id number] #: [id number] Patient: ERICH RODRIGUEZ [id number] [facility] [address] [place] [address] [id number] I MR#: [id number] NAME: ERICH RODRIGUEZ ROOM: [facility] Age: 31 Sex: M Admission Date: 02/15/2017 : 1985 Date of Assessment: Attending Physician: Erich Bess M.D. Admitting Physician: Erich Bess M.D. PSYCHIATRIC ASSESSMENT INFORMANTS The patient, partially reliable; OLOP, reliable. CHIEF COMPLAINT Suicidal ideation and chemical dependence. HISTORY OF PRESENT ILLNESS Mr. Rodriguez is a 31-year-old man who was discharged from this hospital on the evening of 02/13/2017. He reported that when he went to the [facility], they reviewed his medications and medical conditions and said that he was "not medically appropriate" for their facility. He has had a brief alcohol relapse since then and has apparently been sleeping outside in the environment. He was reporting suicidal ideation and was [facility] to [facility]. PAST PSYCHIATRIC HISTORY As noted. The patient was discharged from this facility just a couple of days ago. He has a history of questionable reports of suicidal ideation, and suggestive manipulative behaviors on the unit. He is currently taking Seroquel, Trileptal, Neurontin, and amitriptyline. FAMILY PSYCHIATRIC HISTORY None reported. SOCIAL HISTORY The patient is homeless, in [place], [place]. No other social history available at this time. PAST MEDICAL HISTORY The patient was apparently recently exposed to scabies and suffers from hypertension. MEDICATIONS Lopressor, Cozaar, hydrochlorothiazide, and Protonix. ALLERGIES No known medication allergies. SUBSTANCE USE HISTORY As noted above. MENTAL STATUS EXAMINATION The patient presented as a neatly dressed and groomed man who appeared his Unit #: [id number] #: [id number] Patient: ERICH RODRIGUEZ stated age. He was cooperative with the examination. Speech was spontaneous and easily understood. Musculoskeletal examination was calm. His mood was mildly irritable with a congruent affect. He was alert and fully oriented. Memory and concentration were fair. Thought processes were logical with no evidence of psychosis. He reported suicidal ideation with no specific plan or intent. Insight and judgment, fair. Fund of knowledge and abstraction, fair. ASSETS AND LIABILITIES Assets; the patient is familiar with local resources and presents voluntarily for treatment. Liabilities include history of possible manipulative behavior, ongoing drug use, homeless status. ADMITTING DIAGNOSES AXIS I: Alcohol abuse; cocaine abuse; bipolar disorder, not otherwise specified. AXIS II: Antisocial personality traits. AXIS III: Hypertension, gastroesophageal reflux disease. AXIS IV: AXIS V: PSYCHIATRIC PLAN The patient was admitted and placed on suicide precautions. He does not appear to require the detox protocol at this time and his home medications will be restarted. He will enroll in dual diagnosis groups and activities. Treatment goalsare resolution of SI, improvement in insight, and improvement in coping skills. DISCHARGE PLANNING Follow up with community health resources. ESTIMATED LENGTH OF STAY 5 days. Dictated by... Erich Bess M.D. ANUJ/santiago TD: 02/16/2017 16:30 JOB #: [id number] PSYCHIATRIC ASSESSMENT Page 1 of 1 X Erich Bess MD X PSYCHIATRIC ASSESSMENT
--- NOTE | ~2017-02-15 | HP ---
Unit #: [id number] #: [id number] Patient: OSCAR FONTAINE [id number] [facility] [address] [place] [address] [id number] MR#: [id number] NAME: OSCAR FONTAINE ROOM: [facility] Age: 31 Sex: M Admission Date: 02/15/2017 : 1985 Attending Physician: Oscar Bess M.D. Admitting Physician: Oscar Bess M.D. Primary Care Physician: Generic Doctor Not In System HISTORY AND PHYSICAL NOTE The patient is a 31-year-old male admitted to [facility] on 02/15/2017 for alcohol and cocaine abuse. The patient had a recent admission, and a full history and physical was completed on 02/02/2017. Please see H and P dated 02/02/2017. That H and P has been reviewed. No changes need to be made. Dictated by... Desmond Baeza/bzg TD: 02/16/2017 11:34 JOB #: [id number] HISTORY AND PHYSICAL Page 1 of 1 X JENA SANTOS APRN X HISTORY AND PHYSICAL
--- NOTE | ~2017-02-15 | DS ---
Unit #: [id number] #: [id number] Patient: OSCAR FONTAINE [id number] [facility] [address] [place] [address] [id number] I MR#: [id number] NAME: OSCAR FONTAINE ROOM: [facility] Age: 31 Sex: M Admission Date: 02/15/2017 : 1985 Discharge Date: 02/18/2017 Attending Physician: Manoj Nogueira M.D. Primary Care Physician: Generic Doctor Not In System DISCHARGE SUMMARY REASON FOR ADMISSION Patient is a 31-year-old white male readmitted to the [facility] unit following an alcohol relapse and claims of suicidal ideation. HOSPITAL COURSE The patient was admitted to the [facility] unit under the care of Dr. Bess. He was placed on routine detoxification protocol for alcohol and was restarted on home medication. This physician returned from vacation on 02/18/2017. On that date the patient stated that he had made arrangements to go to "[facility]" and discharge was ordered. FINAL DIAGNOSIS 1. Alcohol use disorder. 2. Mood disorder unspecified. 3. Antisocial personality disorder. 4. Gastritis. 5. Gastroesophageal reflux disease. 6. Peptic ulcer. 7. Hepatitis C. DISCHARGE MEDICATIONS 1. Seroquel 50 mg three times daily, 300 mg at h.s. for mood stabilization. 2. Protonix 40 mg twice daily for gastritis. 3. Trileptal 300 twice daily for mood stabilization. 4. Lopressor 50 mg twice daily for hypertension. 5. Elavil 50 mg at h.s. p.r.n. insomnia. 6. Cozaar 50 mg once daily for hypertension. 7. Oretic 12.5 mg once daily for hypertension. 8. Neurontin 800 mg three times daily for anxiety. This physician will prescribe prescriptions only for psychotropic medications i.e. Seroquel, Trileptal and Elavil and this physician has strong reservations regarding this patient with a bipolar diagnosis and at this point there does appear to be a significant degree of malingering related to the patient's frequent readmissions to this facility. Follow up will take place through the auspices of "[facility]." PROGNOSIS The patient's prognosis is considered somewhat guarded. Unit #: [id number] #: [id number] Patient: ZHEN,OSCAR Mckniney by... Cesar Flannery TD: 02/20/2017 07:48 JOB #: [id number] DISCHARGE SUMMARY Page 1 of 1 X Manoj Nogueira MD X DISCHARGE SUMMARY
== END 2017-02-18 15:15 | disposition home or self-care (01) | DRG 897 ==
LOC: P1E 13:30
DX: F10.10 Alcohol abuse, uncomplicated (principal); F14.10 Cocaine abuse, uncomplicated; R45.851 Suicidal ideations; F31.89 Other bipolar disorder; F60.2 Antisocial personality disorder; I10 Essential (primary) hypertension; B86 Scabies; K21.9 Gastro-esophageal reflux disease without esophagitis

== ENCOUNTER 2017-02-19 23:00 | Inpatient (IN) | payer OTHER ==
--- NOTE | ~2017-02-19 | HP ---
Unit #: [id number] #: [id number] Patient: ERICH FONTAINE [id number] [facility] [address] [place] [address] [id number] I MR#: [id number] NAME: ERICH FONTAINE ROOM: [facility] Age: 31 Sex: M Admission Date: 02/19/2017 : 1985 Attending Physician: Manoj Nogueira M.D. Admitting Physician: Manoj Nogueira M.D. Primary Care Physician: Primary Care Physician No HISTORY AND PHYSICAL NOTE Erich is a 31 year old who was admitted and discharged within the first 24 hours. He was not seen for an history and physical. Dictated by... Magy Gómez P.A.-C. for Cesar Pleitez/mariah TD: 02/21/2017 02:21 JOB #: [id number] HISTORY AND PHYSICAL Page 1 of 1 X Magy Gómez X HISTORY AND PHYSICAL
--- NOTE | ~2017-02-19 | PA ---
Unit #: [id number] #: [id number] Patient: OSCAR FONTAINE [id number] [facility] [address] [place] [address] [id number] I MR#: [id number] NAME: OSCAR FONTAINE ROOM: [facility] Age: 31 Sex: M Admission Date: 02/19/2017 : 1985 Date of Assessment: 02/20/2017 Attending Physician: Manoj Nogueira M.D. Admitting Physician: Manoj Nogueira M.D. Primary Care Physician: Primary Care Physician No PSYCHIATRIC ASSESSMENT IDENTIFYING INFORMATION The patient is a 31-year-old white male admitted in transfer from [facility] claiming to be suicidal. CHIEF COMPLAINT "I need to get back to [place]." INFORMANT(S) Patient, reliability is poor. HISTORY OF PRESENT ILLNESS The patient is a 31-year-old white male who is well known to this facility. He has been frequently admitted and noncompliant with prescribed outpatient care. The patient states that he "needs to get back to [place]." He had initially presented to the [facility] and had been referred to outpatient treatment; 20 minutes later he showed up at [facility] claiming to be suicidal. The patient was discharged from this facility on 02/13/2017. He was supposed to be admitted to the [facility], but this did not take place. The patient has been using cocaine and alcohol since his discharge per his report. He exhibits no signs or symptoms of withdrawal. When seen today, the patient continues to complain of depression and states that he "needs to get back to [place]." For more complete history of present illness, please refer to previously dictated notes. PAST PSYCHIATRIC HISTORY Reviewed, no changes. PAST MEDICAL HISTORY Reviewed, no changes. MEDICATIONS None at this time. ALLERGIES Rocephin, latex, and morphine. FAMILY HISTORY Reviewed, no changes. SOCIAL HISTORY Reviewed, no changes. Unit #: [id number] #: [id number] Patient: OSCAR FONTAINE MENTAL STATUS EXAMINATION Examination at this time reveals the patient to be a well-developed well-nourished somewhat disheveled white male appearing stated age. She is in no apparent physical distress at the time of examination. He is awake, alert, and oriented in all spheres. His mood is mildly dysphoric, his affect congruent. Speech is generally well coherent. There are no gross deficits in memory or cognition noted. Intelligence is judged to be in the average range based on fund of knowledge. The patient is cooperative throughout the interview. He is currently denying suicidal or homicidal ideation or psychotic features. Judgment and insight appear to be reasonably intact. ASSETS AND LIABILITIES The patient's assets are to be assessed. Liabilities: Poor compliance with treatment; malingering; sociopathy; ongoing substance use. DIAGNOSTIC IMPRESSION 1. Alcohol use disorder. 2. Cocaine use disorder. 3. Mood disorder unspecified. 4. Malingering. 5. Hepatitis C. 6. Gastritis. 7. Gastroesophageal reflux disease. 8. Peptic ulcer. TREATMENT PLAN The patient is denying suicidal ideation, requesting transportation to [place]. It will be arranged and discharge will take place today as it is the feeling of this physician that the patient is at this facility secondary to malingering, particularly given the fact that he left [facility] and presented immediately at the [facility], then claiming to be suicidal. Dictated by... Manoj Nogueira M.D. JORGE/lidia TD: 02/20/2017 13:14 JOB #: [id number] PSYCHIATRIC ASSESSMENT Page 1 of 1 X Manoj Nogueira MD X PSYCHIATRIC ASSESSMENT
--- NOTE | ~2017-02-19 | DS ---
Unit #: [id number] #: [id number] Patient: OSCAR FONTAINE [id number] [facility] [address] [place] [address] [id number] I MR#: [id number] NAME: OSCAR FONTAINE ROOM: [facility] Age: 31 Sex: M Admission Date: 02/19/2017 : 1985 Discharge Date: 02/20/2017 Attending Physician: Manoj Nogueira M.D. Primary Care Physician: Primary Care Physician No DISCHARGE SUMMARY REASON FOR ADMISSION The patient is a 31-year-old single white male admitted to the [facility] after he presented to the [facility] claiming to be suicide. This was 20 minutes after he had been discharged from the emergency room at [facility] and referred for outpatient treatment where he did not mention suicidal ideation. HOSPITAL COURSE The patient was admitted to the [address] [place] [address] Unit and as has been promised to the patient on his previous admission, was immediately placed on IV precautions given his complaints of suicidal ideation. He was seen by this physician on the afternoon of 02/20/2017 and at that time denied suicidal ideation stating "I need to get back to [place]." As per his request, arrangements were made for the patient to be transported back to [place] and discharge ordered. FINAL DIAGNOSES 1. Alcohol use disorder. 2. Cocaine use disorder. 3. Mood disorder unspecified. 4. Malingering. 5. Hepatitis C. 6. Gastritis. DISPOSITION ON DISCHARGE No psychotropic or other medications ordered at the time of discharge. Followup will take place through the auspices of community mental health resources in the [facility]. PROGNOSIS Considered fair. Dictated by... Manoj Nogueira M.D. CB/lidia TD: 02/21/2017 12:56 JOB #: [id number] Unit #: [id number] #: [id number] Patient: OSCAR FONTAINE DISCHARGE SUMMARY Page 1 of 1 X Manoj Nogueira MD X DISCHARGE SUMMARY
[2017-02-20 12:53] LABS: URINE APPEARANCE CLEAR; URINE BILIRUBIN NEG (NEG); URINE BLOOD NEG (NEG); URINE COLOR DK YELLOW; URINE GLUCOSE NEG (NEG); URINE KETONE TRACE (NEG); URINE LEUKOCYTE ESTERASE NEG (NEG); URINE NITRATE NEG (NEG); URINE PROTEIN NEG (NEG); URINE SPECIFIC GRAVITY 1.032 (1.003-1.035)
[2017-02-20 13:30] LABS: AMPHETAMINE NEG (NEG); BARBITURATES POS (NEG); BENZODIAZEPINES NEG (NEG); COCAINE NEG (NEG); MARIJUANA NEG (NEG); OPIATES NEG (NEG); TRICYCLIC ANTIDEPRESSANTS POS (NEG); U METHADONE NEG (NEG)
== END 2017-02-20 18:01 | disposition home or self-care (01) | DRG 897 ==
LOC: P1S 23:35
PROVIDERS: Specialist
DX: F10.20 Alcohol dependence, uncomplicated (principal); F14.20 Cocaine dependence, uncomplicated; F39 Unspecified mood [affective] disorder; K27.9 Peptic ulcer, site unspecified, unspecified as acute or chronic, without hemorrhage or perforation; Z76.5 Malingerer [conscious simulation]; B19.20 Unspecified viral hepatitis C without hepatic coma; K29.70 Gastritis, unspecified, without bleeding; K21.9 Gastro-esophageal reflux disease without esophagitis
CPT/HCPCS: 80307; 81003